=== PATIENT | female | born 1930 | race Caucasian/White ===

== ENCOUNTER 2017-09-29 08:40 | Outpatient (CLI) | payer MEDICARE ==
[2017-09-29 09:26] LABS: BASOPHILS % (AUTO) 0.4 % (0-1); EOSINOPHILS # (AUTO) 0.2 X10'3 (0-0.9); HEMATOCRIT 42.4 % (35.0-45.0); HEMOGLOBIN 14.4 g/dl (12.0-16.0); LYMPHOCYTES # (AUTO) 1.2 X10'3 (1.1-4.8); LYMPHOCYTES % (AUTO) 20.8 % (21-51); MEAN CORPUSCULAR VOLUME 88.2 FL (78-98); MEAN PLATELET VOLUME 7.1 FL (7.4-10.4); MONOCYTES # (AUTO) 0.7 X10'3 (0-0.9); MONOCYTES % (AUTO) 11.5 % (2-12); NEUTROPHILS # (AUTO) 3.7 X10'3 (1.8-7.7); NEUTROPHILS % (AUTO) 63.3 % (42-75); PLATELET COUNT 264 X10'3 (140-440); RED CELL DISTRIBUTION WIDTH 14.6 % (11.5-14.5); WHITE BLOOD COUNT 5.9 X10'3 (4.5-11.0)
[2017-09-29 09:36] LABS: INR 1.1 INR; PROTHROMBIN TIME 11.2 SECONDS (9.0-12.0)
[2017-09-29 09:39] LABS: CLARITY,URINE SLIGHTLY CLOUDY (Clear); GLUCOSE, URINE NEGATIVE (Neg); KETONES,URINE TRACE mg/dl (Neg); LEUKOCYTE ESTERASE ,URINE NEGATIVE (Neg); NITRITES, URINE NEGATIVE (Neg); OCCULT BLOOD,URINE NEGATIVE (Neg); PH,URINE 5.5 (4.8-8.0); PROTEIN,URINE NEGATIVE (Neg); UROBILINOGEN,URINE 0.2 E.U/dL (0.2-1.0)
[2017-09-29 09:45] LABS: UA COLLECTION TYPE CLN CATCH MIDSTREAM
[2017-09-29 09:47] LABS: ALANINE AMINOTRANSFERASE 15 U/L (12-78); ALBUMIN 3.7 G/DL (3.4-5.0); ALBUMIN/GLOBULIN RATIO 1.1 (1.1-1.5); ALKALINE PHOSPHATASE 96 IU/L (46-116); ANION GAP 9 (8-16); ASPARTATE AMINO TRANSFERASE 15 U/L (10-37); BILIRUBIN,TOTAL 0.4 MG/DL (0.1-1.0); BLOOD UREA NITROGEN 30 MG/DL (7-18); BUN/CREATININE RATIO 21.4 (6.6-38.0); CALCIUM 10.1 MG/DL (8.5-10.1); CHLORIDE 104 MMOL/L (99-107); COLOR,URINE DARK YELLOW (Yellow); GLUCOSE 104 MG/DL (70-104); POTASSIUM 3.7 MMOL/L (3.5-5.1); SODIUM 142 MMOL/L (135-145); TOTAL CARBON DIOXIDE 29.5 MMOL/L (24-32); eGFR 36 ML/MIN
[2017-09-29 09:56] LABS: BACTERIA,URINE FEW /HPF (Neg); MUCUS STRANDS MANY /LPF (Neg); RBC,URINE NONE SEEN /HPF (0-2); SQUAMOUS EPITHELIAL CELL,UR FEW /LPF (FEW); WBC,URINE 0-4 /HPF (0-4)
== END 2017-09-29 23:59 | disposition home or self-care (01) ==
LOC: LAB 08:40
PROVIDERS: ATTEND Specialist
DX: Z01.818 Encounter for other preprocedural examination (principal); Z51.81 Encounter for therapeutic drug level monitoring; N39.0 Urinary tract infection, site not specified
CPT/HCPCS: 36415; 80053; 81001; 85025; 85610; 87070

== ENCOUNTER 2017-10-13 05:21 | Inpatient (IN) | payer MEDICARE ==
[~2017-10-13] VITALS: Ht 160 cm; Wt 74.3 kg
[2017-10-13] VITALS (21 sets, daily range): BP systolic 87–117; BP diastolic 45–73
[~2017-10-13 05:21] MED LIST: ASPI-12 PO; ATOR40TA PO; CHOL10002 PO; HYDR12.5 PO; IBUP-24 PO; METO-395 PO; ringers solution, lacted 1,000 ML IV SCH
[2017-10-13] MEDS ORDERED: acetaminophen 325mg tablet PO ONE (05:30)
[2017-10-13] MEDS ORDERED: metoclopramide 5 mg/ml inj IV ONE (05:30)
[2017-10-13] MEDS ORDERED: gabapentin 300mg capsule PO ONE (05:30)
[2017-10-13] MEDS ORDERED: cefazolin/dext.iso 2gm/50ml 50 ML IV ONE (05:30)
[2017-10-13] MEDS ORDERED: tranexamic acid inj. 1,000 MG in normal saline 100ml IV soln 90 ML IV ONE (05:30)
[2017-10-13] MEDS ORDERED: DOCUMENT DATE & TIME OF BETA-BLOCKER PO ONE (05:30)
[2017-10-13] MEDS ORDERED: famotidine 20mg tablet PO ONE (05:30)
[2017-10-13] MEDS ORDERED: oxyCODONE SR 10mg (sust. release) tab PO ONE (05:30)
[2017-10-13] MEDS ORDERED: LIDOcaine 1% (10mg/ml) 2ml vial ONE (06:14)
[2017-10-13] MEDS ORDERED: bacitracin inj 150,000 UNIT in sodium chloride irrig. sol 3,000 ML IR ONE (07:00)
[2017-10-13] MEDS ORDERED: ROPIVAcaine 0.5% (5mg/ml) 30ml vial ONE (07:02)
[2017-10-13] MEDS ORDERED: tetracaine 1% (10mg/ml) pres. free inj. ONE (07:13)
[2017-10-13] MEDS ORDERED: fentaNYL/PF 50MCG/1 ML 2ML syringe ONE (07:15)
[2017-10-13] MEDS ORDERED: MORPHINE SULFATE/PF 0.5 MG/ML 10ML AMPUL ONE (07:15)
[2017-10-13] MEDS ORDERED: MIDAZolam 1mg/ml 10ml vial ONE (07:15)
[2017-10-13] MEDS ORDERED: propofol inj 20 ML IV ONE ×2 (07:18)
[2017-10-13] MEDS ORDERED: ceFAZolin 1000mg inj ONE (07:47)
[2017-10-13] MEDS ORDERED: ePHEDrine 50MG/ML INJ. ONE (07:48)
[2017-10-13] MEDS ORDERED: albumin (Human) 5% 250ml 250 ML IV ONE (08:07)
[2017-10-13] MEDS ORDERED: morphine 2 MG/ML inj. syringe IV PRN ×2 (08:15)
[2017-10-13] MEDS ORDERED: hydrALAZINE 20mg/ml inj. IV PRN (08:15)
[2017-10-13] MEDS ORDERED: ringers solution, lacted 1,000 ML IV SCH (08:15)
[2017-10-13] MEDS ORDERED: labetalol 5mg/ml 20ml inj. IV PRN (08:15)
[2017-10-13] MEDS ORDERED: ondansetron/PF 4mg/2ml inj IV PRN ×3 (08:15→09:50)
[2017-10-13] MEDS ORDERED: fentaNYL/PF 50MCG/1 ML 2ML syringe IV PRN ×2 (08:15)
[2017-10-13] MEDS ORDERED: diphenhydrAMINE 50 mg/ml inj IV PRN (08:20)
[2017-10-13] MEDS ORDERED: acetaminophen 325mg tablet PO PRN (09:50)
[2017-10-13] MEDS ORDERED: oxyCODONE IR 5mg (immed. release) tablet PO PRN (09:50)
[2017-10-13] MEDS ORDERED: HYDROmorphone 1 mg/ml syringe IV PRN (09:50)
[2017-10-13] MEDS ORDERED: magnesium hydroxide 30ml (MOM) UD suspension PO PRN (09:50)
[2017-10-13] MEDS ORDERED: diphenhydrAMINE 25mg capsule PO PRN ×2 (09:50)
[2017-10-13] MEDS ORDERED: bisacodyl 10mg suppository rectal RC PRN (09:50)
[2017-10-13] MEDS: potassium cl 20mEq in 1/2 NS 1,000 ML IV SCH ×3 (12:37→20:54)
[2017-10-13] MEDS: gabapentin 300mg capsule PO SCH ×2 (12:37→20:51)
[2017-10-13] MEDS: acetaminophen 325mg tablet PO SCH ×2 (14:00→20:51)
[2017-10-13] MEDS: cefazolin 1gm/NS 100mL 100 ML IV SCH ×2 (16:09→23:44)
[2017-10-13] MEDS: metoprolol succinate 25mg (24-HOUR) SR. Tablet PO SCH (20:49)
[2017-10-13] MEDS: HYDROchlorothiazide 12.5mg capsule PO SCH (20:49)
[2017-10-13] MEDS: celeCOXIB 100mg capsule PO SCH (20:51)
[2017-10-13] MEDS: ascorbic acid 500mg tablet PO SCH (20:51)
[2017-10-13] MEDS: sennosides 8.6mg tablet PO SCH (20:52)
[2017-10-13] MEDS: atorvastatin 20mg tablet PO SCH (20:52)
[2017-10-14] MEDS: acetaminophen 325mg tablet PO SCH ×4 (01:51→20:22)
[2017-10-14 01:52] VITALS: BP 101/54
[2017-10-14 06:00] VITALS: BP 110/57
[2017-10-14 06:24] LABS: BASOPHILS % (AUTO) 0.3 % (0-1); EOSINOPHILS # (AUTO) 0.3 X10'3 (0-0.9); EOSINOPHILS % (AUTO) 3.8 % (0-6); HEMATOCRIT 30.2 % (35.0-45.0); HEMOGLOBIN 10.4 g/dl (12.0-16.0); LYMPHOCYTES # (AUTO) 0.9 X10'3 (1.1-4.8); LYMPHOCYTES % (AUTO) 13.5 % (21-51); MEAN CORPUSCULAR HEMOGLOBIN 30.2 PG (27.0-31.0); MEAN CORPUSCULAR HGB CONC 34.5 % (33.0-36.5); MEAN CORPUSCULAR VOLUME 87.6 FL (78-98); MEAN PLATELET VOLUME 7.4 FL (7.4-10.4); MONOCYTES # (AUTO) 0.7 X10'3 (0-0.9); MONOCYTES % (AUTO) 10.3 % (2-12); NEUTROPHILS # (AUTO) 4.9 X10'3 (1.8-7.7); NEUTROPHILS % (AUTO) 72.1 % (42-75); PLATELET COUNT 168 X10'3 (140-440); RED BLOOD COUNT 3.45 X10'6 (4.20-5.60); RED CELL DISTRIBUTION WIDTH 14.7 % (11.5-14.5); WHITE BLOOD COUNT 6.8 X10'3 (4.5-11.0)
[2017-10-14 06:34] LABS: ANION GAP 6 (8-16); CHLORIDE 102 MMOL/L (99-107); POTASSIUM 3.2 MMOL/L (3.5-5.1); SODIUM 136 MMOL/L (135-145); TOTAL CARBON DIOXIDE 27.9 MMOL/L (24-32)
[2017-10-14 06:36] LABS: INR 1.8 INR; PROTHROMBIN TIME 18.2 SECONDS (9.0-12.0)
[2017-10-14] MEDS: gabapentin 300mg capsule PO SCH ×3 (08:19→20:23)
[2017-10-14] MEDS: multivitamins, therapeutics tablet PO SCH (08:20)
[2017-10-14] MEDS: celeCOXIB 100mg capsule PO SCH ×2 (08:21→20:22)
[2017-10-14] MEDS: ascorbic acid 500mg tablet PO SCH ×2 (08:21→20:22)
[2017-10-14 10:00] VITALS: BP 105/63
[2017-10-14] MEDS ORDERED: warfarin 3mg tablet PO ONE (10:00)
[2017-10-14] MEDS: potassium cl 20mEq in 1/2 NS 1,000 ML IV SCH ×2 (12:40→17:49)
[2017-10-14] MEDS: oxyCODONE IR 5mg (immed. release) tablet PO PRN (13:59)
[2017-10-14 14:00] VITALS: BP 102/46
[2017-10-14 18:52] VITALS: BP 107/57
[2017-10-14] MEDS: atorvastatin 20mg tablet PO SCH (20:22)
[2017-10-14] MEDS: HYDROchlorothiazide 12.5mg capsule PO SCH (20:23)
[2017-10-14] MEDS: metoprolol succinate 25mg (24-HOUR) SR. Tablet PO SCH (20:23)
[2017-10-14] MEDS: sennosides 8.6mg tablet PO SCH (20:23)
[2017-10-14 22:00] VITALS: BP 115/58
[2017-10-15] MEDS: acetaminophen 325mg tablet PO SCH ×2 (03:16→07:18)
[2017-10-15] MEDS: oxyCODONE IR 5mg (immed. release) tablet PO PRN ×2 (05:46→14:44)
[2017-10-15 06:00] VITALS: BP 97/52
[2017-10-15 06:16] LABS: BASOPHILS % (AUTO) 0.1 % (0-1); EOSINOPHILS # (AUTO) 0.4 X10'3 (0-0.9); EOSINOPHILS % (AUTO) 5.1 % (0-6); HEMATOCRIT 28.8 % (35.0-45.0); HEMOGLOBIN 10.2 g/dl (12.0-16.0); LYMPHOCYTES # (AUTO) 0.9 X10'3 (1.1-4.8); LYMPHOCYTES % (AUTO) 10.7 % (21-51); MEAN CORPUSCULAR HEMOGLOBIN 30.2 PG (27.0-31.0); MEAN CORPUSCULAR HGB CONC 35.3 % (33.0-36.5); MEAN CORPUSCULAR VOLUME 85.7 FL (78-98); MEAN PLATELET VOLUME 7.4 FL (7.4-10.4); MONOCYTES # (AUTO) 0.9 X10'3 (0-0.9); NEUTROPHILS % (AUTO) 73.1 % (42-75); PLATELET COUNT 169 X10'3 (140-440); RED BLOOD COUNT 3.36 X10'6 (4.20-5.60); RED CELL DISTRIBUTION WIDTH 14.8 % (11.5-14.5); WHITE BLOOD COUNT 8.2 X10'3 (4.5-11.0)
[2017-10-15 06:31] LABS: INR 2.3 INR; PROTHROMBIN TIME 23.6 SECONDS (9.0-12.0)
[2017-10-15 06:35] LABS: ALANINE AMINOTRANSFERASE 13 U/L (12-78); ALBUMIN 2.3 G/DL (3.4-5.0); ALBUMIN/GLOBULIN RATIO 0.8 (1.1-1.5); ALKALINE PHOSPHATASE 63 IU/L (46-116); ANION GAP 7 (8-16); ASPARTATE AMINO TRANSFERASE 25 U/L (10-37); BILIRUBIN,TOTAL 0.4 MG/DL (0.1-1.0); BLOOD UREA NITROGEN 12 MG/DL (7-18); BUN/CREATININE RATIO 10.3 (6.6-38.0); CALCIUM 7.8 MG/DL (8.5-10.1); CHLORIDE 104 MMOL/L (99-107); CREATININE 1.16 MG/DL (0.40-0.90); GLUCOSE 110 MG/DL (70-104); POTASSIUM 3.7 MMOL/L (3.5-5.1); SODIUM 137 MMOL/L (135-145); TOTAL CARBON DIOXIDE 25.6 MMOL/L (24-32); TOTAL PROTEIN 5.1 G/DL (6.4-8.2); eGFR 44 ML/MIN
[2017-10-15] MEDS: multivitamins, therapeutics tablet PO SCH (07:18)
[2017-10-15] MEDS: celeCOXIB 100mg capsule PO SCH ×2 (07:18→20:33)
[2017-10-15] MEDS: ascorbic acid 500mg tablet PO SCH ×2 (07:18→20:33)
[2017-10-15] MEDS: gabapentin 300mg capsule PO SCH ×3 (07:18→20:34)
[2017-10-15] MEDS ORDERED: HYDROmorphone inj. 0.5 MG/0.5 ML DISP.SYRIN IV PRN (08:20)
[2017-10-15] MEDS ORDERED: acetaminophen 325mg tablet PO PRN (09:50)
[2017-10-15] MEDS ORDERED: warfarin 1mg tablet PO ONE (10:00)
[2017-10-15 18:00] VITALS: BP 111/60
[2017-10-15] MEDS: metoprolol succinate 25mg (24-HOUR) SR. Tablet PO SCH (20:33)
[2017-10-15] MEDS: HYDROchlorothiazide 12.5mg capsule PO SCH (20:33)
[2017-10-15] MEDS: sennosides 8.6mg tablet PO SCH (20:34)
[2017-10-15] MEDS: atorvastatin 20mg tablet PO SCH (20:34)
[2017-10-15 20:39] VITALS: BP 141/64
[2017-10-15 22:40] VITALS: BP 118/58
[2017-10-16 05:00] VITALS: BP 127/67
[2017-10-16] MEDS: oxyCODONE IR 5mg (immed. release) tablet PO PRN (05:09)
[2017-10-16] MEDS ORDERED: ASPI-1264 PO (06:11)
[2017-10-16 06:22] LABS: BASOPHILS % (AUTO) 0.1 % (0-1); EOSINOPHILS # (AUTO) 0.3 X10'3 (0-0.9); EOSINOPHILS % (AUTO) 3.6 % (0-6); HEMATOCRIT 29.1 % (35.0-45.0); HEMOGLOBIN 9.9 g/dl (12.0-16.0); LYMPHOCYTES # (AUTO) 0.7 X10'3 (1.1-4.8); LYMPHOCYTES % (AUTO) 9.5 % (21-51); MEAN CORPUSCULAR HEMOGLOBIN 29.9 PG (27.0-31.0); MEAN CORPUSCULAR VOLUME 87.9 FL (78-98); MEAN PLATELET VOLUME 7.8 FL (7.4-10.4); MONOCYTES # (AUTO) 0.7 X10'3 (0-0.9); MONOCYTES % (AUTO) 9.2 % (2-12); NEUTROPHILS % (AUTO) 77.6 % (42-75); PLATELET COUNT 177 X10'3 (140-440); RED CELL DISTRIBUTION WIDTH 15.3 % (11.5-14.5); WHITE BLOOD COUNT 7.8 X10'3 (4.5-11.0)
[2017-10-16 06:28] LABS: INR 1.9 INR; PROTHROMBIN TIME 19.2 SECONDS (9.0-12.0)
[2017-10-16] MEDS: gabapentin 300mg capsule PO SCH (08:48)
[2017-10-16] MEDS: ascorbic acid 500mg tablet PO SCH (08:48)
[2017-10-16] MEDS: celeCOXIB 100mg capsule PO SCH (08:48)
[2017-10-16] MEDS: multivitamins, therapeutics tablet PO SCH (08:48)
[2017-10-16] MEDS ORDERED: warfarin 1mg tablet PO ONE (10:00)
[2017-10-16 11:31] VITALS: BP 124/60
== END 2017-10-16 12:10 | disposition home or self-care (01) | DRG 470 ==
LOC: PAS IN 05:21 → EDSTATUS 07:30 → ORTHO 4S 11:25
PROVIDERS: ADMIT Specialist; ATTEND Specialist
PROC: 0SR902Z Replacement of Right Hip Joint with Metal on Polyethylene Synthetic Substitute, Open Approach (ICD-10-PCS; principal; 2017-10-13 07:13)
DX: M16.11 Unilateral primary osteoarthritis, right hip (principal); Z96.642 Presence of left artificial hip joint; N18.3 Chronic kidney disease, stage 3 (moderate); D62 Acute posthemorrhagic anemia; E78.5 Hyperlipidemia, unspecified; M81.0 Age-related osteoporosis without current pathological fracture; I12.9 Hypertensive chronic kidney disease with stage 1 through stage 4 chronic kidney disease, or unspecified chronic kidney disease; Q65.89 Other specified congenital deformities of hip; Z88.8 Allergy status to other drugs, medicaments and biological substances; Z79.899 Other long term (current) drug therapy; Z79.82 Long term (current) use of aspirin; Z87.891 Personal history of nicotine dependence
CPT/HCPCS: 36415; 73502; 80051; 80053; 85025; 85610; 86885; 86900; 86901; 87070; 97110; 97116; 97162; 97530; A4565; A6253; A6449; A6455; A7000; C1758; C1776; J0690; J2250; J2274; J2704; J2795; J3010; J3490; J7030; J7120; P9045